=== PATIENT | male | born 1940 | race Two or more races ===

== ENCOUNTER 2020-08-24 20:51 | Inpatient (IN) | payer MEDICARE, BC ==
[~2020-08-24] VITALS: Ht 182.9 cm; Wt 88.5 kg
--- NOTE | 2020-08-24 21:06 | NUR ---
RICHIE FROM [facility] FOR C/O CONSTIPATION FOR THE PAST FEW DAYS AND NAUSEA , VOMITING STARTING IN AM. DENIED ABDOMINAL PAIN. PT WAS ASSISTED TO BED 6 AND WAS PLACED ON A MONITOR. VSS. WILL CONT TO MONITOR
--- NOTE | 2020-08-24 21:11 | NUR ---
DR NAGY AT BED SIDE
[2020-08-24 21:14] LABS: BASOPHILS # (AUTO) 0.1 /CMM (0.0-0.2); BASOPHILS % (AUTO) 0.7 % (0.0-2.0); EOSINOPHILS % (AUTO) 0.1 % (0.0-6.0); HEMATOCRIT 41 % (39-51); HEMOGLOBIN 13.8 g/dL (13.5-17.5); LYMPHOCYTES # (AUTO) 2.1 /CMM (0.8-4.8); LYMPHOCYTES % (AUTO) 15.6 % (20.0-44.0); MEAN CORPUSCULAR HGB CONC 34 g/dl (31.0-36.0); MEAN CORPUSCULAR VOLUME 98 fL (80-96); MONOCYTES # (AUTO) 1.1 /CMM (0.1-1.30); MONOCYTES % (AUTO) 8.2 % (2.0-12.0); NEUTROPHILS % (AUTO) 75.4 % (43.0-81.0); PLATELET COUNT (AUTO) 214 /CMM (150-450); RED BLOOD CELL COUNT(AUTO) 4.14 MIL/uL (4.5-6.0); WHITE BLOOD COUNT (AUTO) 13.3 K/uL (4.3-11.0)
[2020-08-24] MEDS ORDERED: ONDANSETRON HCL/PF 4 MG/2 ML VIAL ONE (21:14)
[2020-08-24] MEDS ORDERED: IV NS 0.9% 1,000 ML BAG IV ONE (21:30)
[2020-08-24] MEDS ORDERED: ONDANSETRON HCL/PF 4 MG/2 ML VIAL IVP ONE (21:30)
[2020-08-24] MEDS ORDERED: FERR324T PO (21:39)
[2020-08-24] MEDS ORDERED: RANO500T3 PO (21:39)
[2020-08-24] MEDS ORDERED: OMEP40CA13 PO (21:39)
[2020-08-24] MEDS ORDERED: MULT-594 PO (21:39)
[2020-08-24] MEDS ORDERED: CHOL400T11 PO (21:39)
[2020-08-24] MEDS ORDERED: DULA1.5P SQ (21:39)
[2020-08-24] MEDS ORDERED: VITA1CAP PO (21:39)
[2020-08-24] MEDS ORDERED: BUPR150T10 PO (21:39)
[2020-08-24] MEDS ORDERED: FOLI0.8C PO (21:39)
[2020-08-24] MEDS ORDERED: LEVO75TA7 PO (21:39)
[2020-08-24] MEDS ORDERED: GLIM4TAB37 PO (21:39)
[2020-08-24] MEDS ORDERED: ASPI-1169 PO (21:39)
[2020-08-24] MEDS ORDERED: METO25TA4 PO (21:39)
[2020-08-24] MEDS ORDERED: NIFE-35 PO (21:39)
[2020-08-24] MEDS ORDERED: SITA50TA PO (21:39)
[2020-08-24] MEDS ORDERED: ARIP2TAB3 PO (21:39)
--- NOTE | 2020-08-24 21:41 | NUR ---
URINE SAMLE AND COVID SWAB SENT TO LAB
--- NOTE | 2020-08-24 21:43 | NUR ---
EMT AT BEDSIDE FOR EKG
[2020-08-24 21:50] LABS: BILIRUBIN,URINE Negative (NEGATIVE); COLOR,URINE ORANGE (YELLOW); LEUKOCYTE ESTERASE ,URINE Negative (NEGATIVE); NITRITE, URINE Negative (NEGATIVE); PH,URINE 5.5 (5.0-8.0); PROTEIN,URINE >=300 mg/dl (NEGATIVE); UGLUCOSE Negative (NEGATIVE); UROBILINOGEN,URINE 0.2 EU/dL (0.2)
[2020-08-24 21:55] LABS: CALCIUM, SERUM 9.9 mg/dL (8.5-10.1); CARBON DIOXIDE 23 mmol/L (21-32); CHLORIDE 101 mmol/L (98-107); CREATININE 2.2 mg/dL (0.6-1.3); GLUCOSE 208 mg/dL (74-106); POTASSIUM 4.8 mmol/L (3.5-5.1); SODIUM SERUM 139 mmol/L (136-145); UREA NITROGEN, BLOOD 36 mg/dL (7-18)
[2020-08-24 22:01] LABS: ALANINE AMINOTRANSFERASE 26 U/L (12-78); ALBUMIN 4.3 g/dL (3.4-5.0); ALKALINE PHOSPHATASE 100 U/L (46-116); ASPARTATE AMINOTRANSFERASE 24 U/L (15-37); BILIRUBIN,DIRECT 0.2 mg/dL (0.0-0.2); BILIRUBIN,TOTAL 0.7 mg/dL (0.2-1.0); LIPASE 219 U/L (73-393); TOTAL PROTEIN, SERUM 8.4 g/dL (6.4-8.2)
--- NOTE | 2020-08-24 22:04 | NUR ---
patient to ct.
[2020-08-24 22:08] LABS: BACTERIA,URINE Rare /HPF (None Seen); RBC,URINE NONE SEEN /HPF (0-2); SQUAMOUS EPITHELIAL CELL,UR Few /HPF (None Seen); WBC,URINE NONE SEEN /HPF (0-3)
--- NOTE | 2020-08-24 22:56 | NUR ---
M/S 108
--- NOTE | 2020-08-24 23:33 | NUR ---
REPORT GIVEN TO BRI ELAINE FOR LANCE
[2020-08-25] MEDS ORDERED: HYDROCODONE/APAP 5/325MG TABLET PO PRN
[2020-08-25] MEDS ORDERED: Z GUARD REMEDY 2 OZ OINT TP PRN
[2020-08-25] MEDS ORDERED: DEXTROSE 50%-WATER 50 ML DISP.SYRIN IV PRN
[2020-08-25] MEDS ORDERED: MAGNESIUM HYDROXIDE 30 ML UDC PO PRN
[2020-08-25] MEDS ORDERED: ACETAMINOPHEN 325 MG TABLET PO PRN
[2020-08-25] MEDS: BLOOD SUGAR DIAGNOSTIC 1 EACH STRIP IN SCH ×5 (00:37→23:26)
[2020-08-25] MEDS: ENOXAPARIN SODIUM 40 MG/0.4 ML DISP.SYRIN SQ SCH ×2 (00:43→21:13)
[2020-08-25] MEDS: ZOLPIDEM TARTRATE 5 MG TABLET PO PRN (00:43)
[2020-08-25] MEDS: IV NS 0.9% 1,000 ML IV PRN ×2 (00:44→18:10)
[2020-08-25] MEDS ORDERED: INSULIN REGULAR, HUMAN 100 UNIT/ML 3 ML VIAL ONE (01:03)
[2020-08-25] MEDS: INSULIN REGULAR, HUMAN 100 UNIT/ML 3 ML VIAL SQ PRN ×4 (01:05→23:40)
[2020-08-25 06:26] LABS: BASOPHILS % (AUTO) 0.1 % (0.0-2.0); EOSINOPHILS % (AUTO) 0.1 % (0.0-6.0); HEMATOCRIT 34 % (39-51); HEMOGLOBIN 11.6 g/dL (13.5-17.5); LYMPHOCYTES # (AUTO) 1.5 /CMM (0.8-4.8); LYMPHOCYTES % (AUTO) 15.4 % (20.0-44.0); MEAN CORPUSCULAR HGB CONC 35 g/dl (31.0-36.0); MEAN CORPUSCULAR VOLUME 97 fL (80-96); MONOCYTES # (AUTO) 1.4 /CMM (0.1-1.30); MONOCYTES % (AUTO) 14.4 % (2.0-12.0); NEUTROPHILS # (AUTO) 6.9 /CMM (1.8-8.9); PLATELET COUNT (AUTO) 164 /CMM (150-450); RED BLOOD CELL COUNT(AUTO) 3.46 MIL/uL (4.5-6.0); WHITE BLOOD COUNT (AUTO) 9.9 K/uL (4.3-11.0)
[2020-08-25 06:53] LABS: CHOLESTEROL 109 mg/dL (<200); HDL CHOLESTEROL 31 mg/dL (40-60); LDL 63 mg/dL (0-99); TRIGLYCERIDES 117 mg/dL (30-150)
--- NOTE | 2020-08-25 07:00 | NUR ---
RN NOTE Humaira Michel contacted fro arias satus for Mr. Jitendra Michel, she requested that the pt. makes his own decision on code status. Pt. asked and witnessed by 2nd RN his wishes to be DNR/DNI. Humaira Michel called and was updated of pt.'s decision, she is satisfied with the decision. Provider danny FRYE notified. NO Vomit during night, no UOP, no BM, continuous burping with foul odor.
[2020-08-25 07:08] LABS: CALCIUM, SERUM 8.7 mg/dL (8.5-10.1); CARBON DIOXIDE 29 mmol/L (21-32); CHLORIDE 105 mmol/L (98-107); CREATININE 1.8 mg/dL (0.6-1.3); GLUCOSE 123 mg/dL (74-106); MAGNESIUM 2.6 mg/dL (1.8-2.4); PHOSPHORUS 3.6 mg/dL (2.5-4.9); POTASSIUM 4.1 mmol/L (3.5-5.1); SODIUM SERUM 140 mmol/L (136-145); UREA NITROGEN, BLOOD 37 mg/dL (7-18)
--- NOTE | 2020-08-25 07:30 | NUR ---
RN OPENING NOTE PATIENT PRESENT IN BED, A/OX4, ON ROOM AIR, SPO2 IS 100%,DENIES NAUSEA, PAIN OR DISCOMFORT AT THIS TIME, AMBULATORY, IV LINE INTACT AND PATENT, RUNNING NS @ 75CC/HR, TOLERATING WELL, HOB ELEVATED, BED IS LOCKED IN LOWEST POTION, CALL LIGHT IN REACH, WILL CONT TO MONITOR
[2020-08-25] MEDS: LEVOTHYROXINE SODIUM 75 MCG TABLET PO SCH (07:44)
[2020-08-25] MEDS: THIAMINE HCL 100 MG TABLET PO SCH (08:58)
[2020-08-25] MEDS: FOLIC ACID 1 MG TABLET PO SCH (08:58)
[2020-08-25] MEDS: FERROUS SULFATE (325 MG) 325 MG/TAB TABLET PO SCH ×2 (08:58→16:16)
[2020-08-25] MEDS: METOPROLOL SUCCINATE 25 MG TAB.SR.24H PO SCH (08:59)
[2020-08-25] MEDS: RANOLAZINE 500 MG TAB.ER.12H PO SCH ×2 (08:59→16:16)
[2020-08-25] MEDS: ARIPIPRAZOLE 2 MG TABLET PO SCH (08:59)
[2020-08-25] MEDS: buPROPion SR 150 MG TABLET.ER PO SCH ×3 (08:59→16:16)
[2020-08-25] MEDS: MULTIVITAMINS,THERAGRAN 1 UDTAB TABLET PO SCH (08:59)
[2020-08-25] MEDS: CHOLECALCIFEROL 1,000 UNIT TABLET (VIT D3) PO SCH (09:00)
[2020-08-25] MEDS: PANTOPRAZOLE 40 MG VIAL IV SCH (09:00)
[2020-08-25] MEDS: ASPIRIN 81 MG TAB.CHEW PO SCH (09:00)
[2020-08-25] MEDS: NIFEdipine XL (30MG) 30 MG TAB PO SCH ×2 (09:01→16:17)
[2020-08-25] MEDS ORDERED: DIATR MEGLU/DIATRIZOATE SODIUM 120 ML BOTTLE (GASTROGRAPHIN) ONE (14:29)
[2020-08-25] MEDS: ONDANSETRON HCL/PF 4 MG/2 ML VIAL IVP PRN ×2 (16:25→22:25)
--- NOTE | 2020-08-25 18:38 | NUR ---
RN CLOSING NOTES REMAINS IN BED, STILL GETTING THROUGH KUB EVERY HOUR IN ROOM, TOLERATING WELL, NO ACUTE CHANGES IN STATUS, HAD 4 BM EARLIER, DENIES NAUSEA OR DISCOMFORT, COMFORT NEEDS ATTENDED, WILL ENDORSE TO PM SHIFT RN FOR LANCE
--- NOTE | 2020-08-25 19:20 | NUR ---
RN OPENING NOTES RECEIVED PT IN BED. RESTING. A/O X4. PT IS ON ROOM AIR. TOLERATING WELL. NO S/S OR RESP DISTRESS OR SOB NOTED AT THIS TIME. PT IS ON M/S MONITORING. IV SITE FLUSHED. RECEIVING IVF 0.9% NS AT 75CC/HR. NO S/S OF INFILTRATION NOTED. PT IS AMBULATORY WITH ASSIST WITH STEADY GAIT. SAFETY MEASURES IN PLACE. ISOLATION PRECAUTIONS IMPLEMENTED PENDING PCR COVID RESULT. HEAD OF BED ELEVATED. SIDE RAILS UP X2. BED IS LOCKED IN LOWEST POSITION. CALL LIGHT WITHIN REACH. NEEDS ATTENDED. AFEBRILE. PT DENIES PAIN AT THIS TIME. WILL CONT TO MONITOR.
[2020-08-25 20:00] VITALS: BP 159/84
--- NOTE | 2020-08-25 21:13 | NUR ---
PT HAD EPISODE OF EMESIS, LIQUID THIN 80CC NOTED. PT DENIES MEDICATION FOR N/V WHEN ASKED, PT VERBALIZES DESIRE TO REST AT THIS TIME.
[2020-08-25 21:26] LABS: BILIRUBIN,URINE NEGATIVE (NEGATIVE); COLOR,URINE YELLOW (YELLOW); LEUKOCYTE ESTERASE ,URINE NEGATIVE (NEGATIVE); NITRITE, URINE NEGATIVE (NEGATIVE); PH,URINE 5.5 (5.0-8.0); PROTEIN,URINE 100 mg/dl (NEGATIVE); UGLUCOSE NEGATIVE (NEGATIVE); UROBILINOGEN,URINE 0.2 EU/dL (0.2)
[2020-08-25 21:27] LABS: CREATININE, URINE 116.6 MG/DL (30.0-125.0)
[2020-08-25 21:37] LABS: BACTERIA,URINE Rare /HPF (None Seen); EOSINOPHIL,URINE None Seen; SQUAMOUS EPITHELIAL CELL,UR Few /HPF (None Seen); WBC,URINE 0-2 /HPF (0-3)
--- NOTE | 2020-08-25 22:41 | NUR ---
PT HAD ANOTHER EMESIS EPISODE, REQUESTS MEDICATION FOR N/V PRN ZOFRAN ADMINISTERED ORDERED WILL CONT TO MONITOR
--- NOTE | 2020-08-25 23:40 | NUR ---
BS 186, NON ADMINISTERED DUE TO PT REFUSAL IN ADDITION TO PT DECREASED PO INTAKE DUE TO N/V. WILL CONT TO MONITOR.
--- NOTE | 2020-08-26 00:54 | NUR ---
PT RESTING QUIETLY, WITH HEAD OF BED ELEVATED. SLEEPING INTERMITTENTLY. WILL CONT TO MONITOR.
--- NOTE | 2020-08-26 02:04 | NUR ---
PT VERBALIZES MEDICATION IS EFFECTIVE, FEELS BETTER AT THIS TIME.
[2020-08-26 04:00] VITALS: BP 160/87
[2020-08-26] MEDS: IV NS 0.9% 1,000 ML IV PRN (04:08)
[2020-08-26] MEDS: BLOOD SUGAR DIAGNOSTIC 1 EACH STRIP IN SCH ×4 (05:47→23:47)
[2020-08-26] MEDS: ONDANSETRON HCL/PF 4 MG/2 ML VIAL IVP PRN ×2 (05:48→23:49)
[2020-08-26] MEDS: INSULIN REGULAR, HUMAN 100 UNIT/ML 3 ML VIAL SQ PRN ×3 (05:53→23:47)
--- NOTE | 2020-08-26 06:05 | NUR ---
BS 190 AT THIS TIME, INSULIN ADMINISTERED ACCORDING TO SLIDING SCALE PT IS ABLE TO TOLERATE FOOD/SNACKS AT THIS TIME.
--- NOTE | 2020-08-26 06:23 | NUR ---
RN CLOSING NOTES PT REMAINS IN BED. RESTING. PER PT REQUEST, PLACED ON 2L OF O2 VIA NASAL CANNULA FOR COMFORT AFTER EMESIS EPISODES. TOTAL OF 3 THROUGHOUT NIGHT, PT AT THIS TIME DENIES NAUSEA. NO RESP DISTRESS OR SOB NOTED AT THIS TIME. PT IS AFEBRILE. DENIES PAIN. NEEDS ATTENDED. SAFETY MEASURES IN PLACE. HOB ELEVATED. SIDE RAILS UP X2. BED LOCKED IN LOWEST POSITION. CALL LIGHT WITHIN REACH. WILL ENDORSE TO AM NURSE FOR CONTINUATION OF CARE.
[2020-08-26 06:34] LABS: BASOPHILS % (AUTO) 0.1 % (0.0-2.0); HEMATOCRIT 38 % (39-51); HEMOGLOBIN 13.2 g/dL (13.5-17.5); LYMPHOCYTES # (AUTO) 0.8 /CMM (0.8-4.8); LYMPHOCYTES % (AUTO) 7.5 % (20.0-44.0); MEAN CORPUSCULAR HGB CONC 35 g/dl (31.0-36.0); MEAN CORPUSCULAR VOLUME 97 fL (80-96); MONOCYTES # (AUTO) 1.2 /CMM (0.1-1.30); MONOCYTES % (AUTO) 11.4 % (2.0-12.0); NEUTROPHILS # (AUTO) 8.8 /CMM (1.8-8.9); PLATELET COUNT (AUTO) 199 /CMM (150-450); RED BLOOD CELL COUNT(AUTO) 3.95 MIL/uL (4.5-6.0); WHITE BLOOD COUNT (AUTO) 10.9 K/uL (4.3-11.0)
[2020-08-26 06:58] LABS: ALANINE AMINOTRANSFERASE 23 U/L (12-78); ALBUMIN 3.9 g/dL (3.4-5.0); ALKALINE PHOSPHATASE 89 U/L (46-116); ASPARTATE AMINOTRANSFERASE 18 U/L (15-37); BILIRUBIN,TOTAL 0.7 mg/dL (0.2-1.0); CALCIUM, SERUM 9.4 mg/dL (8.5-10.1); CARBON DIOXIDE 22 mmol/L (21-32); CHLORIDE 105 mmol/L (98-107); CREATINE KINASE, TOTAL 134 U/L (39-308); CREATININE 1.9 mg/dL (0.6-1.3); GLUCOSE 199 mg/dL (74-106); MAGNESIUM 2.5 mg/dL (1.8-2.4); PHOSPHORUS 2.5 mg/dL (2.5-4.9); SODIUM SERUM 142 mmol/L (136-145); TOTAL PROTEIN, SERUM 7.7 g/dL (6.4-8.2); UREA NITROGEN, BLOOD 38 mg/dL (7-18)
[2020-08-26 08:00] VITALS: BP 137/83
[2020-08-26] MEDS: FOLIC ACID 1 MG TABLET PO SCH (08:20)
[2020-08-26] MEDS: MULTIVITAMINS,THERAGRAN 1 UDTAB TABLET PO SCH (08:20)
[2020-08-26] MEDS: LEVOTHYROXINE SODIUM 75 MCG TABLET PO SCH (08:20)
[2020-08-26] MEDS: ARIPIPRAZOLE 2 MG TABLET PO SCH (08:20)
[2020-08-26] MEDS: THIAMINE HCL 100 MG TABLET PO SCH (08:20)
[2020-08-26] MEDS: CHOLECALCIFEROL 1,000 UNIT TABLET (VIT D3) PO SCH (08:20)
[2020-08-26] MEDS: ASPIRIN 81 MG TAB.CHEW PO SCH (08:20)
[2020-08-26] MEDS: METOPROLOL SUCCINATE 25 MG TAB.SR.24H PO SCH (08:21)
[2020-08-26] MEDS: buPROPion SR 150 MG TABLET.ER PO SCH ×3 (08:21→16:25)
[2020-08-26] MEDS: RANOLAZINE 500 MG TAB.ER.12H PO SCH ×2 (08:21→16:25)
[2020-08-26] MEDS: PANTOPRAZOLE 40 MG VIAL IV SCH (08:21)
[2020-08-26] MEDS: NIFEdipine XL (30MG) 30 MG TAB PO SCH ×2 (08:21→16:26)
[2020-08-26] MEDS: FERROUS SULFATE (325 MG) 325 MG/TAB TABLET PO SCH ×2 (08:26→16:25)
[2020-08-26 12:03] VITALS: BP 137/83
--- NOTE | 2020-08-26 16:55 | NUR ---
RN NOTE PATIENT REMAINS AAOX4, AMBULATORY WITH ASSIST. OXYGEN @ 2L NASAL CANNULA, NO ACUTE DISTRESS NOTED. 8 PLUS STOOLS TODAY-DARK IN COLOR. PATIENT TOLERATED CLD WELL, NO NAUSEA NOR VOMIT THIS SHIFT. HE DENIES ANY PAIN/DISCOMFORTS. NEW IV SITE INSERTED TO RIGHT OUTER AC #22 (NS @ 75ML/HR) AFTER PATIENT DISLODGED PREVIOUS SITE GOING TO BATHROOM UNASSISTED. REMINDED TO UTILIZE CALL LIGHT FOR ASSISTANCE. BED ALARM ENGAGED, BED LOW POSITION/LOCKED. ALL PERSONAL ITEMS AND FLUIDS WITHIN REACH. MONITORING ONGOING.
--- NOTE | 2020-08-26 19:38 | NUR ---
RN NOTE PATIENT A/OX4, ABLE TO MAKE NEEDS KNOWN. NO SOB OR ANY RESPIRATORY DISTRESS. ON 2L O2 VIA NC, O2 SAT 95%. DENIES ANY PAIN OR DISCOMFORT AT THIS TIME. WITH IV ACCESS RIGHT AC #22 RUNNING NS @ 75CC/HR. NO S/S OF ANY INFILTRATION. NO NAUSEA OR VOMITING AT THIS TIME. BED LOCKED AND IN LOWEST POSITION. SIDE RAILS UP X2. CALL LIGHT WITHIN REACH. WILL CONTINUE TO MONITOR. Addendum: 08/26/20 at 1944 by GENEVIEVE PATRICIO RN UPDATED MARQUIS PEDERSON OF PATIENT'S CURRENT CONDITION. GAVE PATIENT CONTACT LIST OF FAMILY'S PHONE NUMBERS.
[2020-08-26 20:00] VITALS: BP 128/71
[2020-08-26] MEDS: ENOXAPARIN SODIUM 40 MG/0.4 ML DISP.SYRIN SQ SCH (21:12)
[2020-08-27 04:00] VITALS: BP 131/69
[2020-08-27] MEDS: BLOOD SUGAR DIAGNOSTIC 1 EACH STRIP IN SCH ×3 (05:31→17:53)
[2020-08-27] MEDS: INSULIN REGULAR, HUMAN 100 UNIT/ML 3 ML VIAL SQ PRN ×2 (05:32→13:35)
[2020-08-27 06:12] LABS: BASOPHILS % (AUTO) 0.3 % (0.0-2.0); CALCIUM, SERUM 8.5 mg/dL (8.5-10.1); CARBON DIOXIDE 22 mmol/L (21-32); CHLORIDE 107 mmol/L (98-107); CREATININE 1.7 mg/dL (0.6-1.3); EOSINOPHILS % (AUTO) 0.4 % (0.0-6.0); GLUCOSE 162 mg/dL (74-106); HEMATOCRIT 30 % (39-51); HEMOGLOBIN 10.6 g/dL (13.5-17.5); LYMPHOCYTES # (AUTO) 0.7 /CMM (0.8-4.8); LYMPHOCYTES % (AUTO) 8.9 % (20.0-44.0); MEAN CORPUSCULAR HGB CONC 35 g/dl (31.0-36.0); MEAN CORPUSCULAR VOLUME 97 fL (80-96); MONOCYTES # (AUTO) 1.2 /CMM (0.1-1.30); MONOCYTES % (AUTO) 15.6 % (2.0-12.0); NEUTROPHILS % (AUTO) 74.8 % (43.0-81.0); PLATELET COUNT (AUTO) 143 /CMM (150-450); POTASSIUM 3.7 mmol/L (3.5-5.1); RED BLOOD CELL COUNT(AUTO) 3.12 MIL/uL (4.5-6.0); SODIUM SERUM 140 mmol/L (136-145); UREA NITROGEN, BLOOD 42 mg/dL (7-18)
--- NOTE | 2020-08-27 06:50 | NUR ---
RN NOTE PATIENT A/OX4, ABLE TO MAKE NEEDS KNOWN. NO SOB OR ANY RESPIRATORY DISTRESS. O2 SAT 99% ON ROOM AIR. DENIES ANY PAIN OR DISCOMFORT AT THIS TIME. WITH IV ACCESS RIGHT AC #22 RUNNING NS @ 75CC/HR. NO S/S OF ANY INFILTRATION. COMPLAINED OF NAUSEA X1, ZOFRAN PRN EFFECTIVE. BED LOCKED AND IN LOWEST POSITION. SIDE RAILS UP X2. CALL LIGHT WITHIN REACH. WILL ENDORSE TO ONCOMING SHIFT.
[2020-08-27 08:06] LABS: PTH, INTACT 95 pg/mL (15-65)
[2020-08-27 08:39] LABS: LYMPHOCYTES % (MANUAL) 9 % (16-48); MONOCYTES % (MANUAL) 16 % (0-11.0); NEUTROPHILS % (MANUAL) 75 (42-76)
[2020-08-27] MEDS: buPROPion SR 150 MG TABLET.ER PO SCH ×3 (09:40→16:13)
[2020-08-27] MEDS: THIAMINE HCL 100 MG TABLET PO SCH (09:40)
[2020-08-27] MEDS: ASPIRIN 81 MG TAB.CHEW PO SCH (09:41)
[2020-08-27] MEDS: FOLIC ACID 1 MG TABLET PO SCH (09:41)
[2020-08-27] MEDS: RANOLAZINE 500 MG TAB.ER.12H PO SCH ×2 (09:41→16:08)
[2020-08-27] MEDS: MULTIVITAMINS,THERAGRAN 1 UDTAB TABLET PO SCH (09:41)
[2020-08-27] MEDS: NIFEdipine XL (30MG) 30 MG TAB PO SCH ×2 (09:41→16:09)
[2020-08-27] MEDS: CHOLECALCIFEROL 1,000 UNIT TABLET (VIT D3) PO SCH (09:41)
[2020-08-27] MEDS: LEVOTHYROXINE SODIUM 75 MCG TABLET PO SCH (09:42)
[2020-08-27] MEDS: METOPROLOL SUCCINATE 25 MG TAB.SR.24H PO SCH (09:44)
[2020-08-27] MEDS: ARIPIPRAZOLE 2 MG TABLET PO SCH (09:44)
[2020-08-27] MEDS: FERROUS SULFATE (325 MG) 325 MG/TAB TABLET PO SCH ×2 (09:44→16:09)
[2020-08-27] MEDS: PANTOPRAZOLE 40 MG VIAL IV SCH (10:29)
[2020-08-27] MEDS: ONDANSETRON HCL/PF 4 MG/2 ML VIAL IVP PRN (11:36)
--- NOTE | 2020-08-27 11:53 | NUR ---
PATIENT OOB WITH ASSISTANCE TO BR. NO BM. C/O SOME NAUSEA, PRN ZOFRAN GIVEN WITH GOOD EFFECTS.
[2020-08-27 12:07] LABS: *SPE A/G RATIO 1.2 (0.7-1.7); *SPE ALBUMIN 3.3 g/dL (2.9-4.4); *SPE ALPHA-1-GLOBULIN 0.3 g/dL (0.0-0.4); *SPE ALPHA-2-GLOBULIN 0.9 g/dL (0.4-1.0); *SPE BETA GLOBULIN 0.9 g/dL (0.7-1.3); *SPE GLOBULIN, TOTAL 2.8 g/dL (2.2-3.9); *SPE M-SPIKE Not Observed g/dL (Not Observed); *SPEGAMMA GLOBULIN 0.7 g/dL (0.4-1.8)
--- NOTE | 2020-08-27 14:25 | NUR ---
SIGNAL SUPERVISOR NOTES PATIENT INITIALLY [facility]LED [facility] AND KAMAR Vines LVN FOR MORNING MED PASS. CONTINUITY OF CARE BY VIVIENNE RN [id number]. PATIENT TRANSFERRED TO ROOM 327-1. NO BELONGINGS. REPORT GIVEN TO TAVARES ELAINE.
--- NOTE | 2020-08-27 15:13 | NUR ---
MS CAFETERIA ASSOCIATE NOTE RECEIVED PT @ 1500. PT AWAKE, A/OX. ABLE TO MAKE NEEDS KNOWN. PT IS AMBULATORY WITH ASSIST. BRP/URINAL. VITALS STABLE. PT REPORTS NO CURRENT PAIN, NO CURRENT NAUSEA. HAS EMESIS BAG CLOSE BY. BED IN LOWEST POSITION, LOCKED. CALL LIGHT WITHIN REACH. WILL CONTINUE TO MONITOR.
--- NOTE | 2020-08-27 15:26 | NUR ---
MS RN NOTE PT HAS TEMP OF 100.3 - GAVE PRN TYLENOL 650MG. WILL CONTINUE TO MONITOR.
[2020-08-27] MEDS: IV NS 0.9% 1,000 ML IV PRN (15:47)
[2020-08-27 16:00] VITALS: BP 137/68
--- NOTE | 2020-08-27 18:12 | NUR ---
RN CLOSING NOTES PT IS LYING IN BED RESTING. OCCASIONAL HICCUPS SINCE TRANSFER TO MED SURG UNIT. PT DENIES NAUSEA AT THIS TIME. NO RESP DISTRESS OR SOB NOTED AT THIS TIME. DENIES PAIN. XR OF KUB DONE - NEGATIVE. PT WAS SEEN BY DR. MCGUIRE - POSSIBLE DC. SAFETY MEASURES IN PLACE. HOB ELEVATED. SIDE RAILS UP X2. BED LOCKED IN LOWEST POSITION. CALL LIGHT WITHIN REACH. WILL ENDORSE TO DAMAGE APPRAISER NURSE.
--- NOTE | 2020-08-27 19:10 | NUR ---
RN NOTES: RECEIVED AWAKE ON BED, A/OX4, PLEASANT PERSONALITY, ORIENTED TO UNIT AND STAFF,NOTED WITH ON AND OFF HICCUPS, ENCOURAGE TO DEEP BREATH AND DRINK AMPLE AMOUNT OF WATER, B/B CONTINENT, AMBULATORY WITH ASSIST, [id number] PATENT WITH IVF OF NS AT 75 ML/HR ONGOING, FALL,SAFETY AND ASPIRATION PRECAUTION OBSERVED, BED LOW AND LOCKED, CALL LIGHT KEPT WITHIN EASY REACH.
[2020-08-27 20:00] VITALS: BP 135/74
[2020-08-27] MEDS: ENOXAPARIN SODIUM 40 MG/0.4 ML DISP.SYRIN SQ SCH (20:38)
--- NOTE | 2020-08-27 21:07 | NUR ---
RN NOTES: DUE TO LOVENOX 40MG, UNABLE TO SCAN, ENTERED MANUALLY, MEDICATION AND DOSE DOUBLE CHECK BY 2 RN, COUNTER SIGNED BY JUANJO/ARGENT[place]. GIVEN AT 8.
[2020-08-27] MEDS: ZOLPIDEM TARTRATE 5 MG TABLET PO PRN (22:18)
--- NOTE | 2020-08-27 22:18 | NUR ---
RN NOTES: -[id number] WITH ON AND OFF HICCUPS,PRODUCT MERCHANDISER NOTIFIED, SUGGEST TO USE PAPER BAG. -8 PATIENT REQUEST FOR HIS AMBIEN, GIVEN PER PATIENT REQUEST.
--- NOTE | 2020-08-27 23:07 | NUR ---
RN NOTES: ASSISTED TO THE BATHROOM, HE PEE, HE DRINK WATER, HICCUPS SLOWLY DIMINISHED, ENCOURAGE TO DO DEEP BREATHING IN BETWEEN.
--- NOTE | 2020-08-27 23:21 | NUR ---
RN NOTES: ABLE TO SLEEP AND REST NO HICCUPS NOTED AT THIS TIME.KEPT COMFORTABLE IN BED, ON CLOSE WATCH.
[2020-08-28] MEDS: BLOOD SUGAR DIAGNOSTIC 1 EACH STRIP IN SCH ×4 (00:14→17:14)
[2020-08-28] MEDS: INSULIN REGULAR, HUMAN 100 UNIT/ML 3 ML VIAL SQ PRN ×4 (00:16→17:15)
--- NOTE | 2020-08-28 00:33 | NUR ---
RN NOTES: BLOOD SUGAR CHECKED-140, INSULIN GIVEN PER SCALE, ABLE TO SLEEP AND REST AFTER AMBIEN.
[2020-08-28 04:00] VITALS: BP 130/70
[2020-08-28 06:32] LABS: BASOPHILS % (AUTO) 0.2 % (0.0-2.0); EOSINOPHILS % (AUTO) 0.4 % (0.0-6.0); HEMATOCRIT 29 % (39-51); HEMOGLOBIN 10.3 g/dL (13.5-17.5); MEAN CORPUSCULAR HGB CONC 35 g/dl (31.0-36.0); MEAN CORPUSCULAR VOLUME 96 fL (80-96); MONOCYTES # (AUTO) 1.1 /CMM (0.1-1.30); MONOCYTES % (AUTO) 15.6 % (2.0-12.0); NEUTROPHILS # (AUTO) 4.8 /CMM (1.8-8.9); NEUTROPHILS % (AUTO) 69.8 % (43.0-81.0); PLATELET COUNT (AUTO) 150 /CMM (150-450); RED BLOOD CELL COUNT(AUTO) 3.06 MIL/uL (4.5-6.0); WHITE BLOOD COUNT (AUTO) 6.9 K/uL (4.3-11.0)
[2020-08-28 06:42] LABS: CALCIUM, SERUM 8.9 mg/dL (8.5-10.1); CARBON DIOXIDE 21 mmol/L (21-32); CHLORIDE 105 mmol/L (98-107); CREATININE 1.7 mg/dL (0.6-1.3); GLUCOSE 153 mg/dL (74-106); POTASSIUM 3.7 mmol/L (3.5-5.1); SODIUM SERUM 139 mmol/L (136-145); UREA NITROGEN, BLOOD 40 mg/dL (7-18)
[2020-08-28 07:30] LABS: BAND % (MANUAL) 2 % (0.0-5.0); LYMPHOCYTES % (MANUAL) 8 % (16-48); MONOCYTES % (MANUAL) 16 % (0-11.0); NEUTROPHILS % (MANUAL) 74 (42-76)
--- NOTE | 2020-08-28 07:50 | NUR ---
RN NOTES: ABLE TO SLEEP AT SHORT INTERVALS, REFUSE TO PUT BACK HIS IV FLUIDS HE SAID HE IS DRINKING A LOT, NOTED WITH HICCUPS WHEN HE WAS AWAKE, BMX2, BLOOD SUGAR CHECKED-121, INSULIN GIVEN PER SCALE.ENDORSED FOR CONTINUITY OF CARE.
[2020-08-28 08:00] VITALS: BP 150/73
--- NOTE | 2020-08-28 08:02 | NUR ---
MS/RN OPENING NOTES RECEIVED PATIENT ON BED AWAKE ALERT AND ORIENTED X4. PATIENT IS ON ROOM AIR SATURATING WELL. PATIENT IN NO APPARENT RESPIRATORY DISTRESS NOTED. NO COMPLAINED OF PAIN NOTED AT THIS TIME. WILL CONTINUE TO MONITOR.
[2020-08-28] MEDS: LEVOTHYROXINE SODIUM 75 MCG TABLET PO SCH (08:18)
[2020-08-28] MEDS: PANTOPRAZOLE 40 MG TABLET.DR PO SCH (08:19)
[2020-08-28] MEDS: CHOLECALCIFEROL 1,000 UNIT TABLET (VIT D3) PO SCH (08:42)
[2020-08-28] MEDS: ASPIRIN 81 MG TAB.CHEW PO SCH (08:42)
[2020-08-28] MEDS: RANOLAZINE 500 MG TAB.ER.12H PO SCH ×2 (08:42→16:13)
[2020-08-28] MEDS: FOLIC ACID 1 MG TABLET PO SCH (08:42)
[2020-08-28] MEDS: METOPROLOL SUCCINATE 25 MG TAB.SR.24H PO SCH (08:43)
[2020-08-28] MEDS: MULTIVITAMINS,THERAGRAN 1 UDTAB TABLET PO SCH (08:44)
[2020-08-28] MEDS: NIFEdipine XL (30MG) 30 MG TAB PO SCH ×2 (08:45→16:13)
[2020-08-28] MEDS: FERROUS SULFATE (325 MG) 325 MG/TAB TABLET PO SCH ×2 (08:45→16:13)
[2020-08-28] MEDS: buPROPion SR 150 MG TABLET.ER PO SCH ×3 (08:45→16:13)
[2020-08-28] MEDS: THIAMINE HCL 100 MG TABLET PO SCH (08:45)
[2020-08-28] MEDS ORDERED: ARIPIPRAZOLE 5 MG TABLET ONE (08:49)
[2020-08-28] MEDS: ARIPIPRAZOLE 2 MG TABLET PO SCH (08:57)
[2020-08-28] MEDS ORDERED: BISACODYL (5 MG) 5 MG TABLET.DR PO PRN (10:30)
--- NOTE | 2020-08-28 11:57 | NUR ---
MS/RN NOTES PATIENT COMPLAINED OF NAUSEA AND VOMITING, ZOFRAN 4MG IV WAS GIVEN. WILL CONTINUE TO MONITOR.
--- NOTE | 2020-08-28 12:00 | NUR ---
MS/RN NOTES ZOFRAN 4MG IV WAS WASTED, PATIENT REFUSED AFTER OPENING THE VIAL.
[2020-08-28] MEDS: IV NS 0.9% 1,000 ML IV PRN (12:32)
[2020-08-28 16:00] VITALS: BP 124/66
--- NOTE | 2020-08-28 16:16 | NUR ---
MS/RN NOTES PATIENT REFUSED IV FLUID ADMINISTRATION EXPLAINED THE RISK AND BENEFITS. WILL CONTINUE TO MONITOR.
--- NOTE | 2020-08-28 18:46 | NUR ---
MS/RN CLOSING NOTES PATIENT IS ON BED. ALERT AND ORIENTED X4. PATIENT IS ON ROOM AIR SATURATION 93%. PATIENT IN NO APPARENT RESPIRATORY DISTRESS NOTED. NO COMPLAINED OF PAIN NOTED AT THIS TIME. SEEN AND EXAMINED BY MD WITH ORDERS MADE AND CARRIED OUT. ALL DUE MEDICATIONS WAS GIVEN. IV ACCESS AT RIGHT AC # 22G WITH IV FLUID OF NS 1L AT 75ML/HR PATIENT REFUSED IV FLUID ADMINISTRATION EXPLAINED THE RISK AND BENEFITS. SAFETY PRECAUTIONS WAS IN PLACED. BED IN LOWEST POSITION AND LOCKED. SIDE RAILS UP X2. CALL LIGHT WITHIN REACH. WILL ENDORSED TO MAILROOM SUPERVISOR FOR LANCE.
[2020-08-28 20:00] VITALS: BP 133/69
[2020-08-28] MEDS: ENOXAPARIN SODIUM 40 MG/0.4 ML DISP.SYRIN SQ SCH (21:14)
[2020-08-28] MEDS: ONDANSETRON HCL/PF 4 MG/2 ML VIAL IVP PRN (22:20)
[2020-08-29] VITALS (30 sets, daily range): BP systolic 65–155; BP diastolic 41–91
[2020-08-29] MEDS: BLOOD SUGAR DIAGNOSTIC 1 EACH STRIP IN SCH ×4 (00:51→18:28)
--- NOTE | 2020-08-29 05:35 | NUR ---
MS RN NOTES PT NOTED TO BE IN DISTRESS. O2 SAT @ 57% PLACED ON NRB MASK. PT TOLERATED WELL. RAPID RESPONSE ACTIVATED. STAT ABG AND CXR ORDERED. WILL CONTINUE TO MONITOR.
[2020-08-29 05:58] LABS: ABG BASE EXCESS -6.8 mmol/L; ABG OXYGEN SATURATION 88.6 % (92.0-98.5); ABG PCO2 24.5 mmHg (35.0-45.0); ABG PH 7.431 (7.350-7.450); ABG PO2 58.6 mmHg (75.0-100.0); AaDO2 629.9 mmHg; COHb 0.8 % (0.5-1.5); MetHb 0.3 % (0.0-1.5); O2Hb 87.6 % (94.0-97.0); SITE, ABG Right Radial; VENT MODE, BG NONREBREATHER
--- NOTE | 2020-08-29 06:19 | NUR ---
MS RN NOTES ABG RESULTS IN. NOTIFIED NIGEL RE PT'S CONDITION. WITH NEW ORDERS TO TRANSFER TO ICU. ORDERS NOTED AND CARRIED OUT. WILL CONTINUE TO MONITOR.
--- NOTE | 2020-08-29 06:30 | NUR ---
MS RN NOTES PT AWAKE & RESPONSIVE. DENIES ANY PAIN AT THIS TIME. TRANSFERRED TO ICU ROOM 258 PER MD ORDERS. REPORT GIVEN TO LEVEL DESIGNER FOR CONTINUITY OF CARE.
--- NOTE | 2020-08-29 07:25 | NUR ---
MS RN NOTES CALLED DTR MARQUIS. NOTIFIED HER RE PT'S CONDITION. PT WAS TRANSFERRED IN ICU ROOM 258. WILL CHECK WITH AM MANAGER SOLAR PER DTR.
[2020-08-29] MEDS: FERROUS SULFATE (325 MG) 325 MG/TAB TABLET PO SCH ×2 (09:07→17:00)
[2020-08-29] MEDS: NIFEdipine XL (30MG) 30 MG TAB PO SCH ×2 (09:07→17:00)
[2020-08-29] MEDS: CHOLECALCIFEROL 1,000 UNIT TABLET (VIT D3) PO SCH (09:07)
[2020-08-29] MEDS: FOLIC ACID 1 MG TABLET PO SCH (09:08)
[2020-08-29] MEDS: THIAMINE HCL 100 MG TABLET PO SCH (09:08)
[2020-08-29] MEDS: PANTOPRAZOLE 40 MG TABLET.DR PO SCH (09:08)
[2020-08-29] MEDS: ASPIRIN 81 MG TAB.CHEW PO SCH (09:08)
[2020-08-29] MEDS: MULTIVITAMINS,THERAGRAN 1 UDTAB TABLET PO SCH (09:08)
[2020-08-29] MEDS: LEVOTHYROXINE SODIUM 75 MCG TABLET PO SCH (09:08)
[2020-08-29] MEDS: METOPROLOL SUCCINATE 25 MG TAB.SR.24H PO SCH (09:09)
[2020-08-29] MEDS: ARIPIPRAZOLE 2 MG TABLET PO SCH (10:17)
[2020-08-29] MEDS: RANOLAZINE 500 MG TAB.ER.12H PO SCH ×2 (10:17→17:00)
[2020-08-29] MEDS: buPROPion SR 150 MG TABLET.ER PO SCH ×3 (10:17→17:00)
[2020-08-29 10:53] LABS: BASOPHILS % (AUTO) 0.1 % (0.0-2.0); HEMATOCRIT 35 % (39-51); HEMOGLOBIN 11.7 g/dL (13.5-17.5); LYMPHOCYTES # (AUTO) 0.9 /CMM (0.8-4.8); LYMPHOCYTES % (AUTO) 7.8 % (20.0-44.0); MEAN CORPUSCULAR HGB CONC 34 g/dl (31.0-36.0); MEAN CORPUSCULAR VOLUME 98 fL (80-96); MONOCYTES # (AUTO) 0.5 /CMM (0.1-1.30); MONOCYTES % (AUTO) 4.5 % (2.0-12.0); NEUTROPHILS # (AUTO) 10.5 /CMM (1.8-8.9); NEUTROPHILS % (AUTO) 87.6 % (43.0-81.0); PLATELET COUNT (AUTO) 176 /CMM (150-450); RED BLOOD CELL COUNT(AUTO) 3.55 MIL/uL (4.5-6.0)
--- NOTE | 2020-08-29 11:49 | NUR ---
AM WELLBUTRIN DOSE GIVEN LATE D/T NEEDED SUPPLY FROM PHARMACY. 12PM DOSE HELD AT THIS TIME. TOO CLOSE TO PREVIOUS DOSE
[2020-08-29] MEDS: ALBUTEROL HALF STRENGTH 1.25 MG/3 ML VIAL.NEB NEB SCH ×2 (12:00→15:30)
[2020-08-29] MEDS ORDERED: PIPERACILLIN /TAZOBACTAM 3.375 G in IV D5W 100 ML IV SCH (12:00)
[2020-08-29] MEDS: IPRATROPIUM NEB FS 0.5 MG/2.5 ML AMPUL.NEB NEB SCH ×2 (12:00→15:30)
[2020-08-29] MEDS ORDERED: PIPERACILLIN /TAZOBACTAM 2.25 G in IV D5W 50 ML IV SCH (12:00)
[2020-08-29 13:09] LABS: BAND % (MANUAL) 15 % (0.0-5.0); LYMPHOCYTES % (MANUAL) 9 % (16-48); METAMYELOCYTES % 1 % (0-0); MONOCYTES % (MANUAL) 12 % (0-11.0); NEUTROPHILS % (MANUAL) 63 (42-76)
[2020-08-29] MEDS: INSULIN REGULAR, HUMAN 100 UNIT/ML 3 ML VIAL SQ PRN (13:51)
--- NOTE | 2020-08-29 17:52 | NUR ---
1700 PO MEDS HELD D/T PT BEING TOO LETHARGIC TO TAKE MEDS AT THIS TIME. PT'S SATS ARE 70%. PT AGREED HE'S TOO TIRED TO SWALLOW PILLS.
[2020-08-29] MEDS ORDERED: NOREPINEPHRINE 8 MG in IV NS 0.9% 242 ML IV PRN (19:00)
--- NOTE | 2020-08-29 19:23 | NUR ---
END OF SHIFT NOTE: PT WAS ALERT OX4 ALL DAY, REFUSED TO WEAR BIPAP. PT IS A DNR/DNI. PT IS CURRENTLY ON HI FLOW NASAL CANNULA. HE WAS SATURATING UPPERS 80'S AND VERY TACHYPNIC UNTIL 1720 WHEN PT TOOK OFF HIGH FLOW NASAL CANNULA FOR A MINUTE. AFTER HIGH FLOW WAS PUT BACK ON PT HAS BEEN SATURATING 70-71%, PT WAS VERY LETHARGIC WAS CONTINUED TO BE ORIENTED X4. PT VIDEO CHATTED [facility] PATIENTS DAUGHTER MARQUIS PRIOR TO THIS EVENT, PT REITERATED TO DAUGHTER THAT HE DOES NOT WANT TO BE INTUBATED AND THAT IF HE IS NOT DOING WELL BY MORNING HE WANTS TO BE COMFORT MEASURES. RIGHT AFTER THE EVENT PATIENT VIDEO CHATTED WITH PATIENTS SON JIHAN, WHO LIVES IN [place]. PT WAS ABLE TO HAVE A SHORT CONVERSATION WITH JIHAN BUT WAS CLEARLY LETHARGIC AND THE CONVERSATION APPEARED TO BE TAXING ON PATIENT. AT 1800 PT FELL ASLEEP, PT'S BP STARTED TO DROP. ORDER FOR LEVOPHED GIVEN BY TRACEE LOMBARDO. TRACEE SPOKE TO PT'S DAUGHTER MARQUIS AND DECIDED ON COMFORT MEASURES IF PATIENT BECOMES UNRESPONSIVE OR CONFUSED D/T HYPOXIA. PT'S DAUGHTER MARQUIS IS COMING TO SEE PATIENT TONIGHT. PT CHECKED ON HOURLY AND PRN BY NURSING STAFF.
[2020-08-29] MEDS ORDERED: MORPHINE SULFATE INJ 4 MG/ML DISP.SYRIN IV PRN (20:00)
--- NOTE | 2020-08-29 20:00 | NUR ---
RN NOTE RECEIVED PT IN BED OBTUNDED, ON HIGH FLOW SATING 70%. SAFETY MEASURES IN PLACE.
--- NOTE | 2020-08-29 20:15 | NUR ---
RN NOTE FAMILY AT BED SIDE. FAMILY DECIDED TO PUT PT ON COMFORT MEASURE. ALL MEDICATIONS DISCONTINUED, MORPHINE 4 MG IV GIVEN.
[2020-08-29] MEDS ORDERED: LORAZEPAM INJ 2 MG/ML VIAL IV PRN (20:30)
--- NOTE | 2020-08-29 21:20 | NUR ---
RN NOTE PT AT 2028 POST, POST MORTEM CARE PROVIDED.
== END 2020-08-29 20:29 | disposition expired | DRG 388 ==
LOC: ER 20:54 → MEDSG1 23:20 → MED 08-27 14:46 → ICU 08-29 06:41
PROVIDERS: ADMIT Nurse Practitioner Acute Care; ATTEND Nurse Practitioner Acute Care
PROC: 5A09357 Assistance with Respiratory Ventilation, Less than 24 Consecutive Hours, Continuous Positive Airway Pressure (ICD-10-PCS; principal; 2020-08-29)
DX: K56.600 Partial intestinal obstruction, unspecified as to cause (principal); A41.9 Sepsis, unspecified organism; N17.0 Acute kidney failure with tubular necrosis; R65.21 Severe sepsis with septic shock; J69.0 Pneumonitis due to inhalation of food and vomit; J96.01 Acute respiratory failure with hypoxia; K56.7 Ileus, unspecified; I25.10 Atherosclerotic heart disease of native coronary artery without angina pectoris; E86.0 Dehydration; K40.90 Unilateral inguinal hernia, without obstruction or gangrene, not specified as recurrent; E03.9 Hypothyroidism, unspecified; D64.9 Anemia, unspecified; F32.9 Major depressive disorder, single episode, unspecified; Z66 Do not resuscitate; Z51.5 Encounter for palliative care; Z79.82 Long term (current) use of aspirin; Z79.84 Long term (current) use of oral hypoglycemic drugs; Z79.899 Other long term (current) drug therapy; K76.89 Other specified diseases of liver; R91.1 Solitary pulmonary nodule; Z79.890 Hormone replacement therapy; Z95.5 Presence of coronary angioplasty implant and graft; J43.2 Centrilobular emphysema; N13.9 Obstructive and reflux uropathy, unspecified; N18.9 Chronic kidney disease, unspecified; I13.10 Hypertensive heart and chronic kidney disease without heart failure, with stage 1 through stage 4 chronic kidney disease, or unspecified chronic kidney disease; Z87.891 Personal history of nicotine dependence; E11.22 Type 2 diabetes mellitus with diabetic chronic kidney disease; K57.30 Diverticulosis of large intestine without perforation or abscess without bleeding; M89.9 Disorder of bone, unspecified; Y95 Nosocomial condition; Z20.822 Contact with and (suspected) exposure to COVID-19
CPT/HCPCS: 31720; 36415; 36600; 71045-TC; 71250-TC; 74018; 74250-TC; 80048-TC; 80053-TC; 80061-TC; 80076-TC; 81001; 82550-TC; 82570-TC; 82962-TC; 83690-TC; 83735-TC; 83970; 84100-TC; 84155; 84155-TC; 84165; 84300-TC; 84484-TC; 85025-TC; 85730-TC; 87040-TC; 87081-TC; 87086-TC; 93307-TC; 93970-TC; 94660; A6403; C9113; C9803; G0378; J1650; J1815; J2270; J2405; J2543; J3490; J7030; J7050; J7060; Q9963; U0003